=== PATIENT | female | born 1970 | race African-American/Black ===

== ENCOUNTER 2017-03-04 12:42 | Emergency (ER) | payer SELFPAY ==
[~2017-03-04] VITALS: Ht 167.6 cm; Wt 117.9 kg
[2017-03-04 13:20] VITALS: BP 140/89
[2017-03-04] MEDS ORDERED: ALBUTEROL SULFATE 2.5 MG/3 ML NEBU. NEB ONE (14:30)
--- NOTE | 2017-03-04 14:33 | PHYS DOC ---
Past Medical History Past Medical History: No Pertinent History Past Surgical History: No Surgical History Alcohol Use: None Drug Use: None Adult General Chief Complaint Chief Complaint: Congestion HPI HPI Patient is a 46 year old female who presents with one week history of burping she's also had increasing coughing some body aches. Denies fever chills headache stiff neck vomiting or diarrhea. She apparently sat an extensive workup and is seen to ENTs for changes in her voice and swallowing issues. she' s had a nasopharyngeal scope done twice. Has seen to specialist with conflicting recommendations regarding thyroid enlargement. Review of Systems Review of Systems Constitutional: Denies fever or chills [] Eyes: Denies change in visual acuity, redness, or eye pain [] HENT: Denies nasal congestion or sore throat [] Respiratory: Denies cough or shortness of breath [] Cardiovascular: No additional information not addressed in HPI [] GI: Denies abdominal pain, nausea, vomiting, bloody stools or diarrhea [] : Denies dysuria or hematuria [] Musculoskeletal: Denies back pain or joint pain [] Integument: Denies rash or skin lesions [] Neurologic: Denies headache, focal weakness or sensory changes [] Endocrine: Denies polyuria or polydipsia [] All other systems were reviewed and found to be within normal limits, except as documented in this note. Current Medications Current Medications Current Medications Medications (Trade) Dose Ordered Sig/Darling Start Time Stop Time Status Last Admin Dose Admin Albuterol Sulfate (Ventolin Neb Soln) 2.5 mg 1X ONCE 03/04/17 14:30 03/04/17 14:31 DC 03/04/17 14:40 2.5 MG Allergies Allergies Allergies Coded Allergies Type Severity Reaction Last Updated Verified No Known Drug Allergies 03/04/17 No Physical Exam Physical Exam Constitutional: Well developed, well nourished, no acute distress, non-toxic appearance. [] HENT: Normocephalic, atraumatic, bilateral external ears normal, oropharynx moist, no oral exudates, nose normal. [] Eyes: PERRLA, EOMI, conjunctiva normal, no discharge. [] Neck: Normal range of motion, no tenderness, supple, no stridor. [] Cardiovascular:Heart rate regular rhythm, no murmur [] Lungs & Thorax: Bilateral breath sounds clear to auscultation [] Abdomen: Bowel sounds normal, soft, no tenderness, no masses, no pulsatile masses. [] Skin: Warm, dry, no erythema, no rash. [] Back: No tenderness, no CVA tenderness. [] Extremities: No tenderness, no cyanosis, no clubbing, ROM intact, no edema. [] Neurologic: Alert and oriented X 3, normal motor function, normal sensory function, no focal deficits noted. [] Psychologic: Affect normal, judgement normal, mood normal. [] Current Patient Data Vital Signs Vital Signs Date Time Temp Pulse Resp B/P (MAP) Pulse Ox O2 Delivery O2 Flow Rate FiO2 03/04/17 14:40 98 Room Air 03/04/17 13:20 98.7 96 20 140/89 (106) 98.7 Lab Values Laboratory Tests Test 03/04/17 13:30 POC Urine HCG, Qualitative Hcg negative (Negative) EKG EKG [] Radiology/Procedures Radiology/Procedures Chest x-ray[] atelectasis bilateral no infiltrate per radiology report Course & Med Decision Making Course & Med Decision Making Pertinent Labs and Imaging studies reviewed. (See chart for details) [] Dragon Disclaimer Dragon Disclaimer This electronic medical record was generated, in whole or in part, using a voice recognition dictation system. Departure Departure Impression: Primary Impression: Cough Disposition: 01 HOME, SELF-CARE Condition: STABLE Referrals: NO PCP (PCP) Scripts Ondansetron (ZOFRAN ODT) 4 Mg Tab.rapdis 4 MG PO TID Y for NAUSEA/VOMITING, #10 TAB Prov: CARLO LUNA MD 03/04/17 Guaifenesin/Dextromethorphan (Robitussin Cough-Chest Dm Liq) 237 Ml Liquid 10 ML PO QID Y for COUGH, #120 LIQUID Prov: CARLO LUNA MD 03/04/17 Albuterol Sulfate (PROVENTIL HFA INHALER) 6.7 Gm Hfa.aer.ad 2 PUFF IH PRN Q4HRS Y for FOR ASTHMA, #1 INHALER 0 Refills Prov: CARLO LUNA MD 03/04/17 CARLO LUNA MD Mar 04, 2017 14:33
--- NOTE | 2017-03-04 14:46 | RAD ---
Indication: Chest pain, belching. Nausea and cough. Symptoms for a few days. Technique: Upright portable chest radiograph was obtained. Comparison is not available. Findings: Linear atelectasis or less likely infiltrate in the lower lung wilcox bilaterally is noted. Calcified granuloma is noted in the left lung base. The heart is not enlarged and there is no heart failure. Bony structures are intact. Anterior cervical fusion is noted. Leads overlie the patient. Impression: Linear bands of atelectasis or less likely infiltrate bilaterally in the lower lobes.
[2017-03-04] MEDS ORDERED: GUAI237L83 PO (14:57)
[2017-03-04] MEDS ORDERED: PROVENTIL HFA6.7 GM IH (14:57)
[2017-03-04] MEDS ORDERED: ONDA4TAB10 PO (14:57)
== END 2017-03-04 15:09 | disposition home or self-care (01) ==
LOC: ER 12:42
DX: R05 Cough (principal); M79.1 Myalgia
CPT/HCPCS: 71010; 81025; 94250; 94640; 99284; J7613

== ENCOUNTER → 2021-04-12 | Outpatient (CLI) | payer OTHER ==
[2021-03-14 15:00] VITALS: BP 122/63
[~2021-04-12] MED LIST: ALBU2.5V8 IH; BUDE0.5A NEB; DOXY100C3 PO; GUAI237L83 PO; IPRA3AMP29 NEB; MELO15TA23 PO; METH-562 PO; MONT10TA49 PO; NEBU-129 MC; ONDA4TAB10 PO; PRED20TA PO; PROVENTIL HFA6.7 GM IH; SPIR1TAB3 PO; TRAM50TA PO
--- NOTE | 2021-04-13 10:45 | RAD ---
INDICATION: 51 years of age asymptomatic female patient presents for screening mammography. Baseline TECHNIQUE: Standard MLO and cc views obtained. Study interpreted with the aid of computer-aided dete ction. COMPARISON: None .. BREAST COMPOSITION: Category B: There are scattered fibroglandular densities. FINDINGS: No suspicious mass or clustered microcalcification. No architectural distortion. IMPRESSION: No mammographic evidence of malignancy. RECOMMENDATION: Annual screening mammography is recommended, unless clinically indicated sooner based on symptoms or change in physical exam. BIRADS 1: NEGATIVE This study was interpreted with the benefit of Computerized Aided Detection (CAD). Recommend routine screening in one year. Patient information is entered into the reminder system with a target due date for the next screening mammogram. Mammography is the most sensitive method for finding small breast cancers, but it does not detect the m all and is not a substitute for careful clinical examination. A negative mammogram does not negate a clinically suspicious finding and should not result in delay in biopsying a clinically suspicious a bnormality. "Our facility is accredited by the [employer] Mammography Program." Electronically signed by: Jamar Stone MD (04/13/2021 10:42 AM) [id number]
== END ==
LOC: MAMMO 13:23
PROVIDERS: ATTEND Family Medicine
DX: Z12.31 Encounter for screening mammogram for malignant neoplasm of breast (principal)
CPT/HCPCS: 77067

== ENCOUNTER 2021-09-11 12:26 | Inpatient (IN) | payer OTHER ==
[~2021-09-11] VITALS: Ht 167.6 cm; Wt 156.0 kg
[2021-09-11 13:24] LABS: BASO % 1 % (0-3); EOS # 0.1 x10^3/uL (0.0-0.7); EOS % 1 % (0-3); HEMATOCRIT 34.8 % (36.0-47.0); LYMPH # 1.4 x10^3/uL (1.0-4.8); LYMPH % 26 % (24-48); MEAN CORPUSCULAR HEMOGLOBIN 27 pg (25-35); MEAN CORPUSCULAR HGB CONC 32 g/dL (31-37); MEAN CORPUSCULAR VOLUME 85 fL (79-100); MONO # 0.6 x10^3/uL (0.0-1.1); MONO % 10 % (0-9); NEUT # 3.5 x10^3/uL (1.8-7.7); NEUT % 62 % (31-73); PLATELET COUNT 282 x10^3/uL (140-400); RED BLOOD COUNT 4.11 x10^6/uL (3.50-5.40); RED CELL DISTRIBUTION WIDTH 14.8 % (11.5-14.5); WHITE BLOOD COUNT 5.6 x10^3/uL (4.0-11.0)
[2021-09-11 13:35] LABS: CALCIUM 8.6 mg/dL (8.5-10.1); CREATININE 0.8 mg/dL (0.6-1.0); GFR 90.8; POTASSIUM 4.2 mmol/L (3.5-5.1)
--- NOTE | 2021-09-11 13:44 | RAD ---
Single view of the chest. 09/11/2021 1:12 PM Indication: Edema Comparison: Chest radiograph April 13, 2021 Findings: There is mild left basilar atelectasis or infiltrate. Mild central vascular congestion may be present. No pneumothorax or pleural effusion is identified. Heart size is normal. No acute osseous changes are identified. IMPRESSION:. 1. Mild central vascular congestion 2. Mild bibasilar atelectasis or infiltrate Electronically signed by: Olaf Cast MD (09/11/2021 1:42 PM) [id number]
[2021-09-11] MEDS ORDERED: FUROSEMIDE 40 MG/4 ML VIAL. ONE (14:25)
--- NOTE | 2021-09-11 14:39 | PHYS DOC ---
Past Medical History Past Medical History: No Pertinent History, Asthma Additional Past Medical Histor: "something with my thyroid" Past Surgical History: No Surgical History Additional Past Surgical Histo: spinal sx Smoking Status: Never Smoker Alcohol Use: None Drug Use: None General Adult EDM: Chief Complaint: LOWER EXTREMITY SWELLING HPI: HPI: Patient is a 51 year old female with a history of hypertension who presents to the emergency department today with concerns for bilateral lower extremity edema. Patient states over the past 2 to 3 weeks she has had worsening swelling in her legs and feet. She states that she normally takes spironolactone and hydrochlorothiazide but this has not helped with her swelling. She also endorses some shortness of breath. She endorses both PND and orthopnea. She denies having any chest pain. She denies any history of heart failure. She states she has seen her PCP who has adjusted her diuretics but she continues to have some swelling. Review of Systems: Review of Systems: Constitutional: Denies fever or chills. [] Eyes: Denies change in visual acuity. [] HENT: Denies nasal congestion or sore throat. [] Respiratory: Denies cough or shortness of breath. [] Cardiovascular: Denies chest pain GI: Denies abdominal pain, nausea, vomiting, bloody stools or diarrhea. [] : Denies dysuria. [] Musculoskeletal: Denies back pain or joint pain. [] Integument: Denies rash. [] Neurologic: Denies headache, focal weakness or sensory changes. [] Endocrine: Denies polyuria or polydipsia. [] Lymphatic: Denies swollen glands. [] Psychiatric: Denies depression or anxiety. [] Heart Score: C/O Chest Pain: No Current Medications: Current Medications Medications (Trade) Dose Ordered Sig/Darling Start Time Stop Time Status Last Admin Dose Admin Furosemide (Lasix) 40 mg 1X ONCE 09/11/21 14:45 09/11/21 14:46 09/11/21 14:33 40 MG Allergies: Allergies: Allergies Coded Allergies Type Severity Reaction Last Updated Verified No Known Drug Allergies 03/04/17 No Physical Exam: PE: Constitutional: Well developed, well nourished, no acute distress, non-toxic appearance. [] HENT: Normocephalic, atraumatic, bilateral external ears normal, oropharynx moist, no oral exudates, nose normal. [] Eyes: PERRLA, EOMI, conjunctiva normal, no discharge. [] Neck: Normal range of motion, no tenderness, supple, no stridor. [] Cardiovascular:Heart rate regular rhythm, no murmur [] Lungs & Thorax: Mild expiratory wheeze at the bases. Abdomen: Bowel sounds normal, soft, no tenderness, no masses, no pulsatile masses. [] Skin: Warm, dry, no erythema, no rash. [] Back: No tenderness, no CVA tenderness. [] Extremities: No tenderness, no cyanosis, no clubbing, ROM intact. 2+ bilateral lower extremity edema. Neurologic: Alert and oriented X 3, normal motor function, normal sensory function, no focal deficits noted. [] Psychologic: Affect normal, judgement normal, mood normal. [] Current Patient Data: Labs: Laboratory Tests Test 09/11/21 13:00 White Blood Count 5.6 x10^3/uL (4.0-11.0) Red Blood Count 4.11 x10^6/uL (3.50-5.40) Hemoglobin 11.0 g/dL (12.0-15.5) L Hematocrit 34.8 % (36.0-47.0) L Mean Corpuscular Volume 85 fL (79-100) Mean Corpuscular Hemoglobin 27 pg (25-35) Mean Corpuscular Hemoglobin Concent 32 g/dL (31-37) Red Cell Distribution Width 14.8 % (11.5-14.5) H Platelet Count 282 x10^3/uL (140-400) Neutrophils (%) (Auto) 62 % (31-73) Lymphocytes (%) (Auto) 26 % (24-48) Monocytes (%) (Auto) 10 % (0-9) H Eosinophils (%) (Auto) 1 % (0-3) Basophils (%) (Auto) 1 % (0-3) Neutrophils # (Auto) 3.5 x10^3/uL (1.8-7.7) Lymphocytes # (Auto) 1.4 x10^3/uL (1.0-4.8) Monocytes # (Auto) 0.6 x10^3/uL (0.0-1.1) Eosinophils # (Auto) 0.1 x10^3/uL (0.0-0.7) Basophils # (Auto) 0.0 x10^3/uL (0.0-0.2) Sodium Level 141 mmol/L (136-145) Potassium Level 4.2 mmol/L (3.5-5.1) Chloride Level 104 mmol/L (98-107) Carbon Dioxide Level 30 mmol/L (21-32) Anion Gap 7 (6-14) Blood Urea Nitrogen 14 mg/dL (7-20) Creatinine 0.8 mg/dL (0.6-1.0) Estimated GFR (Cockcroft-Gault) 90.8 Glucose Level 139 mg/dL (70-99) H Calcium Level 8.6 mg/dL (8.5-10.1) Troponin I High Sensitivity 6 ng/L (4-50) JZ-[id number]-G-Type Natriuretic Peptide 23 pg/mL (0-124) Laboratory Tests 09/11/21 13:00 Laboratory Tests 09/11/21 13:00 Vital Signs: Vital Signs Date Time Temp Pulse Resp B/P (MAP) Pulse Ox O2 Delivery O2 Flow Rate FiO2 09/11/21 14:23 77 20 120/57 (78) 98 Nasal Cannula 2.0 09/11/21 12:45 97.8 97.8 EKG: EKG: EKG shows a normal sinus rhythm with a rate of 71. There is a leftward axis. No evidence of ischemia or infarction. EKG was interpreted by myself. Radiology/Procedures: Radiology/Procedures: PROCEDURE: CHEST PA & LATERAL Single view of the chest. 09/11/2021 1:12 PM Indication: Edema Comparison: Chest radiograph April 13, 2021 Findings: There is mild left basilar atelectasis or infiltrate. Mild central vascular congestion may be present. No pneumothorax or pleural effusion is identified. Heart size is normal. No acute osseous changes are identified. IMPRESSION:. 1. Mild central vascular congestion 2. Mild bibasilar atelectasis or infiltrate Impression: New onset CHF Bilateral lower extremity edema Course & Med Decision Making: Course & Med Decision Making Patient was evaluated at the bedside with a physical exam. History and physical consistent with CHF. BNP is 28. This is likely diastolic heart failure. Her chest x-ray shows evidence of pulmonary vascular congestion. I have given the patient 40mg of Lasix IV here in the emergency department. I have discussed her with Dr. Chang and we will admit her to the hospitalist service for an echo, diuresis and further management per the hospitalist team. Diana Disclaimer: Diana Disclaimer: This electronic medical record was generated, in whole or in part, using a voice recognition dictation system. Departure Departure Impression: Primary Impression: New onset of congestive heart failure Additional Impression: Bilateral lower extremity edema Disposition: HOME / SELF CARE / HOMELESS Condition: STABLE Referrals: BRYCE HUTSON MD (PCP) ALTAGRACIA SHAH MD September 11, 2021 14:39
[2021-09-11] MEDS ORDERED: FUROSEMIDE 40 MG/4 ML VIAL. IVP ONE (14:45)
--- NOTE | 2021-09-11 15:12 | EKG ---
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
[2021-09-11 16:18] VITALS: BP 113/57
--- NOTE | 2021-09-11 17:40 | PDOC1 ---
History and Physical Date of Service: DOS: DATE: 09/11/21 TIME: 17:31 Chief Complaint: Chief Complain: Lower extremity edema History of Present Illness: HPI: 51 year old female with a history of hypertension who presents to the emergency department today with concerns for bilateral lower extremity edema. Patient states over the past 2 to 3 weeks she has had worsening swelling in her legs and feet. She states that she normally takes spironolactone and hydrochlorothiazide but this has not helped with her swelling. She also endorses some shortness of breath. She endorses both PND and orthopnea. She denies having any chest pain. She denies any history of heart failure. She states she has seen her PCP who has adjusted her diuretics but she continues to have some swelling. Past Medical/Surgical History: PMH/PSH: Past Medical History: Asthma Past Surgical History: spinal sx Allergies: Allergies: Coded Allergies: No Known Drug Allergies (Unverified , 03/04/17) Family History: Family History: Reviewed with no relative findings in the chart Social History: Social History: Smoking Status: Never Smoker Alcohol Use: None Drug Use: None Current Medications: Current Medications Current Medications Furosemide (Lasix) 40 mg STK-MED ONCE .ROUTE ; Start 09/11/21 at 14:25; Stop at 14:26; Status DC Furosemide (Lasix) 40 mg 1X ONCE IVP Last administered on 09/11/21at 14:33; Start 09/11/21 at 14:45; Stop 09/11/21 at 14:46; Status DC Active Scripts Active Doxycycline Hyclate 100 Mg Capsule 1 Cap PO BID 5 Days Innospire Go Nebulizer (Nebulizer) 1 Each Each Each Up to 6 times daily for budesonide and as needed duo nebs. Please dispense tubing and accessories Proair Hfa (Albuterol Sulfate) 8.5 Gm Hfa.aer.ad 2 Puff IH PRN Q4-6HRS PRN 21 Days Prednisone 20 Mg Tablet 1 Tab PO DAILY 5 Days Duoneb 0.5-3(2.5) Mg/3 Ml (Albuterol/Ipratropium) 3 Ml Ampul.neb 3 Ml NEB PRN Q4HRS PRN 30 Days Budesonide 0.5 Mg/2 Ml Ampul.neb 0.5 Mg NEB RTBID 30 Days Montelukast Sodium Tablet (Montelukast Sodium) 10 Mg Tablet 10 Mg PO QHS 30 Days Robitussin Cough-Chest Dm Liq (Guaifenesin/Dextromethorphan) 237 Ml Liquid 10 Ml PO QID PRN Reported Spironolactone-Hctz 25-25 Tab (Spironolact/Hydrochlorothiazid) 1 Each Tablet 1 Each PO DAILY ROS: Review of Systems Review of System REVIEW OF SYSTEMS: GENERAL: Denies weakness SKIN: No bruising, hair changes or rashes. EYES: No blurred, double or loss of vision. NOSE AND THROAT: No history of nosebleeds, hoarseness or sore throat. HEART: No history of palpitations, chest pain or shortness of breath on exertion. LUNGS: Denies cough, hemoptysis, wheezing or shortness of breath. GASTROINTESTINAL: Denies changes in appetite, nausea, vomiting, diarrhea or constipation. GENITOURINARY: No history of frequency, urgency, hesitancy or nocturia. NEUROLOGIC: Denies history of numbness, tingling, or tremor. PSYCHIATRIC: No history of panic, anxiety or depression. ENDOCRINE: No history of heat or cold intolerance, polyuria or polydipsia. EXTREMITIES: Positive for lower extremity edema Physical Exam: Vital Signs: Vital Signs Date Time Temp Pulse Resp B/P (MAP) Pulse Ox O2 Delivery O2 Flow Rate FiO2 09/11/21 16:33 Nasal Cannula 2.0 09/11/21 16:18 98.1 90 19 113/57 (75) 98 98.1 Physcial Exam: General: Well developed, well nourished, no acute distress, well appearing HEENT: Pupils equally round and reactive to light, EOMI, no discharge, normal conjunctiva Neck: Supple, no nuchal rigidity, no JVD, trachea midline, no tenderness Cardiac: RRR, no murmurs, no gallops, no rubs Chest/Lungs: Bilateral wheeze at the bases, no rhonchi, no crackles Abdomen: soft, non-distended, no guarding, no peritoneal signs, non-tender Back: No tenderness Extremities: +2 bilateral pulmonary edema, pulses intact, non-tender,capillary refill <3 sec bilateral upper and lower extremities, Neuro: Alert and oriented x 4, no focal deficits, normal speech Labs: Labs: Laboratory Tests Test 09/11/21 13:00 White Blood Count 5.6 x10^3/uL (4.0-11.0) Red Blood Count 4.11 x10^6/uL (3.50-5.40) Hemoglobin 11.0 g/dL (12.0-15.5) Hematocrit 34.8 % (36.0-47.0) Mean Corpuscular Volume 85 fL (79-100) Mean Corpuscular Hemoglobin 27 pg (25-35) Mean Corpuscular Hemoglobin Concent 32 g/dL (31-37) Red Cell Distribution Width 14.8 % (11.5-14.5) Platelet Count 282 x10^3/uL (140-400) Neutrophils (%) (Auto) 62 % (31-73) Lymphocytes (%) (Auto) 26 % (24-48) Monocytes (%) (Auto) 10 % (0-9) Eosinophils (%) (Auto) 1 % (0-3) Basophils (%) (Auto) 1 % (0-3) Neutrophils # (Auto) 3.5 x10^3/uL (1.8-7.7) Lymphocytes # (Auto) 1.4 x10^3/uL (1.0-4.8) Monocytes # (Auto) 0.6 x10^3/uL (0.0-1.1) Eosinophils # (Auto) 0.1 x10^3/uL (0.0-0.7) Basophils # (Auto) 0.0 x10^3/uL (0.0-0.2) Sodium Level 141 mmol/L (136-145) Potassium Level 4.2 mmol/L (3.5-5.1) Chloride Level 104 mmol/L (98-107) Carbon Dioxide Level 30 mmol/L (21-32) Anion Gap 7 (6-14) Blood Urea Nitrogen 14 mg/dL (7-20) Creatinine 0.8 mg/dL (0.6-1.0) Estimated GFR (Cockcroft-Gault) 90.8 Glucose Level 139 mg/dL (70-99) Calcium Level 8.6 mg/dL (8.5-10.1) Troponin I High Sensitivity 6 ng/L (4-50) DG-Gxm-U-Type Natriuretic Peptide 23 pg/mL (0-124) Laboratory Tests Test 09/11/21 13:00 White Blood Count 5.6 x10^3/uL (4.0-11.0) Red Blood Count 4.11 x10^6/uL (3.50-5.40) Hemoglobin 11.0 g/dL (12.0-15.5) Hematocrit 34.8 % (36.0-47.0) Mean Corpuscular Volume 85 fL (79-100) Mean Corpuscular Hemoglobin 27 pg (25-35) Mean Corpuscular Hemoglobin Concent 32 g/dL (31-37) Red Cell Distribution Width 14.8 % (11.5-14.5) Platelet Count 282 x10^3/uL (140-400) Neutrophils (%) (Auto) 62 % (31-73) Lymphocytes (%) (Auto) 26 % (24-48) Monocytes (%) (Auto) 10 % (0-9) Eosinophils (%) (Auto) 1 % (0-3) Basophils (%) (Auto) 1 % (0-3) Neutrophils # (Auto) 3.5 x10^3/uL (1.8-7.7) Lymphocytes # (Auto) 1.4 x10^3/uL (1.0-4.8) Monocytes # (Auto) 0.6 x10^3/uL (0.0-1.1) Eosinophils # (Auto) 0.1 x10^3/uL (0.0-0.7) Basophils # (Auto) 0.0 x10^3/uL (0.0-0.2) Sodium Level 141 mmol/L (136-145) Potassium Level 4.2 mmol/L (3.5-5.1) Chloride Level 104 mmol/L (98-107) Carbon Dioxide Level 30 mmol/L (21-32) Anion Gap 7 (6-14) Blood Urea Nitrogen 14 mg/dL (7-20) Creatinine 0.8 mg/dL (0.6-1.0) Estimated GFR (Cockcroft-Gault) 90.8 Glucose Level 139 mg/dL (70-99) Calcium Level 8.6 mg/dL (8.5-10.1) Troponin I High Sensitivity 6 ng/L (4-50) NV-Enq-L-Type Natriuretic Peptide 23 pg/mL (0-124) Images: Images PROCEDURE: CHEST PA & LATERAL Single view of the chest. 09/11/2021 1:12 PM Indication: Edema Comparison: Chest radiograph April 13, 2021 Findings: There is mild left basilar atelectasis or infiltrate. Mild central vas cular congestion may be present. No pneumothorax or pleural effusion is identified. Heart size is normal. No acute osseous changes are identified. IMPRESSION:. 1. Mild central vascular congestion 2. Mild bibasilar atelectasis or infiltrate Assessment/Plan Assessment/Plan Acute hypoxic respiratory failure Pulmonary edema Lower extremity edema, concern for CHF exacerbation History of asthma History of bronchitis Admit to hospitalist for further management Pending TE Cardiology consult Strict I's/O Monitor urine output Lasix IV daily and as needed O2 supplementation to maintain O2 saturations greater than 92% DuoNebs as needed every 6 hours Lovenox for DVT prophylaxis Cardiac diet CODE STATUS full Discussed with RN and SW Disposition inpatient management as above DPOA: Justifications for Admission Other Justification NORBERTO MCLAIN MD September 11, 2021 17:40
[2021-09-11] MEDS ORDERED: DEXTROSE 50% 25 GM / 50ML DISP.SYRIN. IV PRN (17:45)
[2021-09-11] MEDS ORDERED: ZOLPIDEM 5 MG TABLET. PO PRN (17:45)
[2021-09-11] MEDS ORDERED: ONDANSETRON PF 4 MG/2 ML VIAL. IVP PRN (17:45)
[2021-09-11] MEDS ORDERED: diphenhydrAMINE 50 MG/ML VIAL IVP PRN (17:45)
[2021-09-11] MEDS ORDERED: PROCHLORPERAZINE 10 MG/2 ML VIAL. IV PRN (17:45)
[2021-09-11] MEDS ORDERED: IPRATRPIUM/ALBUTEROL 0.5/2.5MG 3 ML NEBU. NEB PRN (17:45)
[2021-09-11] MEDS ORDERED: diphenhydrAMINE HCL 25 MG CAPSULE PO PRN ×2 (17:45)
[2021-09-11] MEDS ORDERED: DOCUSATE SODIUM 100 MG CAPSULE. PO PRN (17:45)
[2021-09-11] MEDS ORDERED: SENNOSIDES 8.6 MG TABLET PO PRN (17:45)
[2021-09-11] MEDS ORDERED: ALBUTEROL SULFATE 2.5 MG/3 ML NEBU. NEB PRN (18:00)
[2021-09-11 19:29] VITALS: BP 118/62
[2021-09-11] MEDS: ACETAMINOPHEN 325 MG TABLET. PO PRN (20:26)
[2021-09-11] MEDS: LORazepam 0.5 MG TABLET PO PRN (20:27)
[2021-09-11] MEDS: MONTELUKAST SODIUM 10 MG TABLET. PO SCH (20:27)
[2021-09-11] MEDS: BUDESONIDE 0.5 MG/2 ML NEBU. NEB SCH (20:33)
[2021-09-11] MEDS: IPRATRPIUM/ALBUTEROL 0.5/2.5MG 3 ML NEBU. NEB SCH (20:33)
[2021-09-11 22:56] VITALS: BP 104/65
[2021-09-12 03:23] VITALS: BP 102/55
[2021-09-12] MEDS: ACETAMINOPHEN 325 MG TABLET. PO PRN ×3 (03:28→21:53)
[2021-09-12 06:59] LABS: CALCIUM 8.7 mg/dL (8.5-10.1); CREATININE 0.8 mg/dL (0.6-1.0); GFR 90.8; MAGNESIUM 2.1 mg/dL (1.8-2.4); PHOSPHORUS 4.5 mg/dL (2.6-4.7); POTASSIUM 3.4 mmol/L (3.5-5.1)
[2021-09-12 07:00] VITALS: BP 120/58
[2021-09-12 07:10] LABS: BASO % 1 % (0-3); EOS # 0.1 x10^3/uL (0.0-0.7); EOS % 1 % (0-3); HEMATOCRIT 32.8 % (36.0-47.0); HEMOGLOBIN 10.6 g/dL (12.0-15.5); LYMPH # 1.6 x10^3/uL (1.0-4.8); LYMPH % 31 % (24-48); MEAN CORPUSCULAR HEMOGLOBIN 27 pg (25-35); MEAN CORPUSCULAR HGB CONC 32 g/dL (31-37); MEAN CORPUSCULAR VOLUME 85 fL (79-100); MONO # 0.6 x10^3/uL (0.0-1.1); MONO % 13 % (0-9); NEUT # 2.8 x10^3/uL (1.8-7.7); NEUT % 55 % (31-73); PLATELET COUNT 258 x10^3/uL (140-400); RED BLOOD COUNT 3.87 x10^6/uL (3.50-5.40); RED CELL DISTRIBUTION WIDTH 15.2 % (11.5-14.5); WHITE BLOOD COUNT 5.2 x10^3/uL (4.0-11.0)
[2021-09-12] MEDS ORDERED: PERFLUTREN PROTEIN-A MICROSPHR 0.22 MG/ML 3 ML VIAL. IVP ONE ×2 (07:15→07:51)
[2021-09-12] MEDS: IPRATRPIUM/ALBUTEROL 0.5/2.5MG 3 ML NEBU. NEB SCH ×4 (07:55→20:16)
[2021-09-12] MEDS: BUDESONIDE 0.5 MG/2 ML NEBU. NEB SCH ×2 (07:55→20:16)
[2021-09-12] MEDS: predniSONE 20 MG TABLET PO SCH (08:38)
--- NOTE | 2021-09-12 08:58 | PDOC ---
[employer] PROGRESS NOTE Date of Service DOS: DATE: 09/12/21 TIME: 08:36 Chief Complaint Chief Complaint Dyspnea Fall at home Bilateral knee and ankle pain Pulmonary edema Lower extremity edema -very low NT proBNP difficulty use diagnostic tests in morbidly obese patient [Cutoff for super morbid obesity may be 20.4 in some studies (SAADIA PIÑA)] History of asthma History of bronchitis History of Present Illness History of Present Illness Ms Billingsley is a 51-year-old female with PMHx asthma, morbid obesity came to the ED after a fall onto her backside at home and inability to stand. For the past 2 to 3 weeks she has had worsening swelling in her legs and feet. She states that she normally takes spironolactone and hydrochlorothiazide but this has not helped with her swelling. She also endorses some shortness of breath. She endorses both PND and orthopnea. She denies having any chest pain. She denies any history of heart failure. She states she has seen her PCP who has adjusted her diuretics but she continues to have some swelling. 09/12: She notes after IV Lasix she had some improvement but swelling came right back. Has significant pain to palpation of her left foot. Able to bear weight but intermittently has pain in bilateral knees cannot stand for more than 10 seconds unaided. She has been using a Rollator walker at home. After Lasix pain is down to 3.0. She still has dyspnea on exertion and orthopnea. NT proBNP was only 23. We will trial aggressive IV Lasix consult cardiology and pulmonology. Check uric acid venous Dopplers of lower extremities Vitals/I&O Vitals/I&O: Vital Signs Date Time Temp Pulse Resp B/P (MAP) Pulse Ox O2 Delivery O2 Flow Rate FiO2 09/12/21 07:56 95 Nasal Cannula 2.0 09/12/21 07:00 97.8 84 20 120/58 (78) 97.8 I & O 09/11/21 09/11/21 09/12/21 15:00 23:00 07:00 Intake Total 700 ml Output Total 800 ml 150 ml Balance -800 ml 550 ml Physical Exam General: Alert, Oriented X3, Cooperative Lungs: Clear Extremities: Other (2+ pitting edema) Labs Labs: Laboratory Tests Test 09/11/21 13:00 09/12/21 05:00 5/24/22 05:20 White Blood Count 5.6 x10^3/uL (4.0-11.0) 5.2 x10^3/uL (4.0-11.0) Red Blood Count 4.11 x10^6/uL (3.50-5.40) 3.87 x10^6/uL (3.50-5.40) Hemoglobin 11.0 g/dL (12.0-15.5) 10.6 g/dL (12.0-15.5) Hematocrit 34.8 % (36.0-47.0) 32.8 % (36.0-47.0) Mean Corpuscular Volume 85 fL (79-100) 85 fL (79-100) Mean Corpuscular Hemoglobin 27 pg (25-35) 27 pg (25-35) Mean Corpuscular Hemoglobin Concent 32 g/dL (31-37) 32 g/dL (31-37) Red Cell Distribution Width 14.8 % (11.5-14.5) 15.2 % (11.5-14.5) Platelet Count 282 x10^3/uL (140-400) 258 x10^3/uL (140-400) Neutrophils (%) (Auto) 62 % (31-73) 55 % (31-73) Lymphocytes (%) (Auto) 26 % (24-48) 31 % (24-48) Monocytes (%) (Auto) 10 % (0-9) 13 % (0-9) Eosinophils (%) (Auto) 1 % (0-3) 1 % (0-3) Basophils (%) (Auto) 1 % (0-3) 1 % (0-3) Neutrophils # (Auto) 3.5 x10^3/uL (1.8-7.7) 2.8 x10^3/uL (1.8-7.7) Lymphocytes # (Auto) 1.4 x10^3/uL (1.0-4.8) 1.6 x10^3/uL (1.0-4.8) Monocytes # (Auto) 0.6 x10^3/uL (0.0-1.1) 0.6 x10^3/uL (0.0-1.1) Eosinophils # (Auto) 0.1 x10^3/uL (0.0-0.7) 0.1 x10^3/uL (0.0-0.7) Basophils # (Auto) 0.0 x10^3/uL (0.0-0.2) 0.0 x10^3/uL (0.0-0.2) Sodium Level 141 mmol/L (136-145) 142 mmol/L (136-145) Potassium Level 4.2 mmol/L (3.5-5.1) 3.4 mmol/L (3.5-5.1) Chloride Level 104 mmol/L (98-107) 103 mmol/L (98-107) Carbon Dioxide Level 30 mmol/L (21-32) 30 mmol/L (21-32) Anion Gap 7 (6-14) 9 (6-14) Blood Urea Nitrogen 14 mg/dL (7-20) 12 mg/dL (7-20) Creatinine 0.8 mg/dL (0.6-1.0) 0.8 mg/dL (0.6-1.0) Estimated GFR (Cockcroft-Gault) 90.8 90.8 Glucose Level 139 mg/dL (70-99) 98 mg/dL (70-99) Calcium Level 8.6 mg/dL (8.5-10.1) 8.7 mg/dL (8.5-10.1) Troponin I High Sensitivity 6 ng/L (4-50) DF-Ijw-V-Type Natriuretic Peptide 23 pg/mL (0-124) Phosphorus Level 4.5 mg/dL (2.6-4.7) Magnesium Level 2.1 mg/dL (1.8-2.4) Assessment and Plan Assessmemt and Plan Problems Medical Problems: (1) Bilateral lower extremity edema Status: Acute (2) New onset of congestive heart failure Status: Acute Comment Review of Relevant I have reviewed the following items mehdi (where applicable) has been applied. Medications: Current Medications Medications (Trade) Dose Ordered Sig/Darling Route PRN Reason Start Time Stop Time Status Last Admin Dose Admin Furosemide (Lasix) 40 mg 1X ONCE IVP 09/11/21 14:45 09/11/21 14:46 DC 09/11/21 14:33 Budesonide (Pulmicort) 0.5 mg RTBID NEB 09/11/21 20:00 09/12/21 07:55 Montelukast Sodium (Singulair) 10 mg QHS PO 09/11/21 21:00 09/11/21 20:27 Albuterol/ Ipratropium (Duoneb) 3 ml RTQID NEB 09/11/21 20:00 09/12/21 07:55 Acetaminophen (Tylenol) 650 mg PRN Q4HRS PRN PO TEMP OVER 100.4F OR MILD PAIN 09/11/21 17:45 09/12/21 03:28 Lorazepam (Ativan) 0.5 mg PRN Q6HRS PRN PO ANXIETY / AGITATION 09/11/21 17:45 09/11/21 20:27 Enoxaparin Sodium (Lovenox 60mg Syringe) 60 mg Q12HR SQ 09/11/21 21:00 09/11/21 20:27 Diphenhydramine HCl (Benadryl) 25 mg PRN QHS PRN PO INSOMNIA, 1st CHOICE 09/11/21 17:45 09/11/21 20:27 Justifications for Admission Other Justification Concern for CHF exacerbation NNEKA RANDOLPH MD September 12, 2021 08:58
--- NOTE | 2021-09-12 09:27 | RAD ---
EXAMINATION: US BILATERAL LOWEREXTREMITY VENOUS DOPPLER INDICATION: Reason: Pain, swelling, concern for DVT / Spl. Instructions: / History: COMPARISONS: None TECHNIQUE: Grayscale, color and spectral Doppler evaluation of the bilateral lower extremity deep brian ous system(s) was performed. FINDINGS: Evaluation bilateral lower extremities is somewhat limited secondary to patient's body habi tus. bilateral common femoral, femoral and popliteal veins are normally compressible and demonstrate leticia lly directed and appropriately phasic flow with augmentation. Normal flow is present within the saphenofemoral junctions and deep femoral veins in the proximal thi ghs and the posterior tibial and peroneal veins in the proximal calves. IMPRESSION: No visualized evidence of deep venous thrombosis in either lower extremity. Electronically signed by: Thierry Tomas DO (09/12/2021 9:24 AM) [id number]
[2021-09-12] MEDS ORDERED: POTASSIUM CHLORIDE 20 MEQ TABLET.ER. PO ONE (10:00)
[2021-09-12 10:06] VITALS: BP 109/58
[2021-09-12] MEDS: BENZONATATE 100 MG CAPSULE. PO SCH ×3 (10:06→21:00)
[2021-09-12] MEDS: SPIRONOLACTONE 25 MG TABLET PO SCH (10:08)
[2021-09-12] MEDS: FUROSEMIDE 40 MG/4 ML VIAL. IVP SCH ×2 (10:09→14:55)
--- NOTE | 2021-09-12 10:33 | CONS ---
DATE OF CONSULTATION: 09/12/2021 PULMONARY CONSULTATION ATTENDING PHYSICIAN: Dr. Chang. REASON FOR CONSULTATION: Dyspnea. HISTORY OF PRESENT ILLNESS: The patient is a 51-year-old morbidly obese female with a BMI of 56. She presented to the hospital with 3 weeks complaint of lower extremity edema. She has very mild shortness of breath. She has an occasional cough. The patient said she has a history of asthma, which has been under control and uses an inhaler. She does not remember the name of the inhaler. The patient denies any chest pain. Her was at the bedside. He gave much of the history as well. The patient states that she does use a CPAP. I am not sure whether this BiPAP or Trilogy. The noticed that she does wheeze at nighttime and has some gasping for air. The patient has put on 30 pounds in the last 1 year. The patient has received 1 dose of COVID vaccine. A chest x-ray was reviewed by me. I do not see any definite consolidation or CHF. Consultation requested for further evaluation and management. PAST MEDICAL HISTORY: Asthma. PAST SURGICAL HISTORY: Spinal surgery. ALLERGIES: None. MEDICATIONS: Reviewed as listed in the MRAD including furosemide, spironolactone, oral prednisone, Lovenox for DVT prophylaxis and bronchodilators with Pulmicort and DuoNeb. REVIEW OF SYSTEMS: A 12-point systems obtained. Pertinent positives and negatives discussed in my present illness, otherwise noncontributory. All systems that were negative were reviewed as well. SOCIAL HISTORY: Denies significant tobacco use. FAMILY HISTORY: Noncontributory to lungs. PHYSICAL EXAMINATION: VITAL SIGNS: Reviewed. Pulse ox 96% on 2 liters. NECK: Supple. LUNGS: Clear. No wheezing. CARDIOVASCULAR: Regular rate. ABDOMEN: Soft, obese. EXTREMITIES: With 2+ pitting edema. LABORATORY DATA: Reviewed. White cell count 5.2, hemoglobin 10.6 and platelets are 258. BUN is 12, creatinine 0.8. Bicarb is 30. ProBNP is 23. IMPRESSION: 1. Acute hypoxic respiratory failure secondary to component of right heart failure. Clinically, less likely asthma exacerbation. No obvious CHF seen on the chest x-ray. ProBNP is normal. 2. Abnormal echo with mild pulmonary hypertension with an estimated pulmonary artery pressure of 30 to 35, likely from underlying sleep apnea and obesity/hypoventilation syndrome. 3. The patient with known history of sleep apnea and suspected obesity and hypoventilation syndrome. She does use a BIPAP/ Trilogy. She is not sure what she uses. The notices occasional gasping at nighttime. We may have to review the download data from her machine to make sure it is providing effective positive pressure at night. Patient has gained 30Lbs in past year. RECOMMENDATIONS: 1. Continue with present oxygen to keep saturation 92% and above. 2. Continue with diuretics. 3. Await for the official echo report. 4. Continue prednisone with taper. 5. Continue bronchodilators including DuoNeb and budesonide. 6. We will review the download data from her home PAP machine and may recommend another titration to make sure that she is receiving effective pressure or adjust PAP settings based on download data. 7. Discussed with her and we will follow along with you. d/w Dr Tameka MCGRATH/ALEJANDRINA DR: ALCIDES/lyndsey TID: [id number] [facility] HOSPITALDuane
--- NOTE | 2021-09-12 11:47 | CARD ---
MR#: [id number] Date of Study: 09/12/2021 Ordering Physician: NORBERTO MCLAIN, Referring Physician: NORBERTO MCLAIN, Tech: Eveline Ray [facility] APPROVED REPORT EXAM: Two-dimensional and M-mode echocardiogram with Doppler and color Doppler. Other Information Quality : Technically LimitedHR: 78bpm Rhythm : NSR INDICATION Congestive Heart Failure Echo Enhancing Agent Indication: Endocardial border delineation Agent/Amount Used: Optison 2mL RISK FACTORS Hypertension Obesity 2D DIMENSIONS RVDd3.0 (2.9-3.5cm)Left Atrium(2D)3.3 (1.6-4.0cm) IVSd1.0 (0.7-1.1cm)Aortic Root(2D)2.9 (2.0-3.7cm) LVDd4.5 (3.9-5.9cm)LVOT Diameter2.3 (1.8-2.4cm) PWd1.0 (0.7-1.1cm)LVDs2.0 (2.5-4.0cm) FS (%) 56.8 %SV81.6 ml Aortic Valve AoV Peak Uche.186.5cm/sAoV VTI33.5cm AO Peak GR.13.9mmHgLVOT Peak Uche.113.9cm/s AO Mean GR.6mmHgAVA (VMAX)2.45cm2 Mitral Valve MV E Kxpnpdxx52.1cm/sMV DECEL IHCR146mz MV A Kdavfgue67.2cm/sE/A Ratio1.1 Pulmonary Valve PV Peak Gkyjxphy14.3cm/s Tricuspid Valve TR P. Pfuvghvq842pd/sTR Peak Gr.25mmHg LEFT VENTRICLE The left ventricle is normal size. There is normal left ventricular wall thickness. The left ventricu lar systolic function is normal. LV ejection fraction of 50 to 55% There is normal LV segmental wall motion. The left ventricular diastolic function and filling is normal for age. RIGHT VENTRICLE The right ventricle is normal size. There is normal right ventricular wall thickness. The right ventr icular systolic function is normal. ATRIA The left atrium size is normal. The right atrium size is normal. The interatrial septum is intact wit h no evidence for an atrial septal defect or patent foramen ovale as noted on 2-D or Doppler imaging. AORTIC VALVE The aortic valve is normal in structure and function. Doppler and Color Flow revealed no significant aortic regurgitation. There is no significant aortic valvular stenosis. There is no aortic valvular v egetation. MITRAL VALVE The mitral valve is normal in structure and function. There is no evidence of mitral valve prolapse. There is no mitral valve stenosis. Doppler and Color Flow revealed no mitral valve regurgitation note d. TRICUSPID VALVE The tricuspid valve is normal in structure and function. Doppler and Color Flow revealed mild tricusp id regurgitation. Estimated PAP 30 mmHg. There is no tricuspid valve stenosis. PULMONIC VALVE The pulmonary valve is normal in structure and function. Doppler and Color Flow revealed no pulmonic valvular regurgitation. GREAT VESSELS The aortic root is normal in size. The ascending aorta is normal in size. Due to poor image quality, the IVC could not be assessed. PERICARDIAL EFFUSION There is no evidence of significant pericardial effusion. Critical Notification Critical Value: No <Conclusion> The left ventricle is normal size. The left ventricular systolic function is normal. LV ejection fraction of 50 to 55% There is normal left ventricular wall thickness. Doppler and Color Flow revealed no significant aortic regurgitation. There is no significant aortic valvular stenosis. Doppler and Color Flow revealed no mitral valve regurgitation noted. Doppler and Color Flow revealed mild tricuspid regurgitation. Estimated PAP 30 mmHg. Signed by : Prem Lacy MD Electronically Approved : 09/12/2021 11:47:18
--- NOTE | 2021-09-12 12:13 | PDOC2 ---
LORRAINE GUSTAFSON TAXIC[employer] DRIVER 09/12/21 1213: CARDIAC CONSULT DATE OF CONSULT Date of Consult DATE: 09/12/21 TIME: 11:56 REASON FOR CONSULT Reason for Consult: Concern for pulmonary HTN REFERRING PHYSICIAN Referring Physician: Tameka SOURCE Source: Chart review, Patient HISTORY OF PRESENT ILLNESS HISTORY OF PRESENT ILLNESS This is a pleasant 51 yo female admitted for complains of leg swelling. Reports that this has been incresing to a point that it was hard of her to walk. Reports wt gain of at least 50 pounds since Feb 2021. She has chronic respiratory failure and she has VILLA but no different from her baseline. She has been using supplemental O2 since Feb of last yr and has not needing increasing rate and ust ilizes it at sleep and activity. She does not work and has disability. Denies any chest pain, palpitations. She was told in the past that her insurance does not cover bariatric surgery. Denies any past VTE, CAD, arrhythmias nor CHF. Denies any DM2, HTN, or HLP. No past covid-19 but significnat for chronic bronchitisi and asthma. PAST MEDICAL HISTORY Pulmonary: Asthma, COPD, Other (chronic respiratory failure) CENTRAL NERVOUS SYSTEM: Carpal Tunnel Syndrome GI: GERD Heme/Onc: No pertinent hx Hepatobiliary: No pertinent hx Psych: No pertinent hx Musculoskeletal: Osteoarthritis, Other (morbid obesity) Rheumatologic: No pertinent hx Infectious disease: No pertinent hx ENT: No pertinent hx Renal/: No pertinent hx Endocrine: No pertinent hx Dermatology: No pertinent hx PAST SURGICAL HISTORY Past Surgical History: Other (cervical fusion) FAMILY HISTORY Family History noncontributory to CV SOCIAL HISTORY Smoke: Quit ALCOHOL: none Drugs: None Lives: Alone CURRENT MEDICATIONS CURRENT MEDICATIONS Current Medications Medications (Trade) Dose Ordered Sig/Darling Route PRN Reason Start Time Stop Time Status Last Admin Dose Admin Furosemide (Lasix) 40 mg 1X ONCE IVP 09/11/21 14:45 09/11/21 14:46 DC 09/11/21 14:33 Budesonide (Pulmicort) 0.5 mg RTBID NEB 09/11/21 20:00 09/12/21 07:55 Montelukast Sodium (Singulair) 10 mg QHS PO 09/11/21 21:00 09/11/21 20:27 Prednisone (Prednisone) 20 mg DAILY PO 09/12/21 09:00 09/12/21 08:38 Albuterol/ Ipratropium (Duoneb) 3 ml RTQID NEB 09/11/21 20:00 09/12/21 07:55 Acetaminophen (Tylenol) 650 mg PRN Q4HRS PRN PO TEMP OVER 100.4F OR MILD PAIN 09/11/21 17:45 09/12/21 03:28 Lorazepam (Ativan) 0.5 mg PRN Q6HRS PRN PO ANXIETY / AGITATION 09/11/21 17:45 09/11/21 20:27 Enoxaparin Sodium (Lovenox 60mg Syringe) 60 mg Q12HR SQ 09/11/21 21:00 09/12/21 08:38 Diphenhydramine HCl (Benadryl) 25 mg PRN QHS PRN PO INSOMNIA, 1st CHOICE 09/11/21 17:45 09/11/21 20:27 Benzonatate (Tessalon Perle) 100 mg [id number] PO 09/12/21 09:00 09/12/21 10:06 Furosemide (Lasix) 40 mg [id number] IVP 09/12/21 09:00 09/12/21 10:09 Spironolactone (Aldactone) 25 mg DAILY PO 09/12/21 09:00 09/12/21 10:08 Potassium Chloride (Klor-Con) 40 meq 1X ONCE PO 09/12/21 10:00 09/12/21 10:01 DC 09/12/21 10:07 ALLERGIES ALLERGIES: Coded Allergies: No Known Drug Allergies (Unverified , 03/04/17) ROS Review of System 14 point ROS evlauated with pertinent positives noted per HPI PHYSICAL EXAM General: Alert, Oriented X3, Cooperative, No acute distress HEENT: Atraumatic, Mucous membr. moist/pink Lungs: Other (diminished) Heart: Regular rate (SR), Other (distant heart sounds due to body habitus but no murmur) Abdomen: Soft, No tenderness Extremities: No cyanosis, Other (2-3+ bilateral LE pitting edema) Skin: No breakdown, No significant lesion Neuro: Normal speech, Sensation intact Psych/Mental Status: Mental status NL, Mood NL MUSCULOSKELETAL: Full range of motion without pain VITALS/I&O VITALS/I&O: Vital Signs Date Time Temp Pulse Resp B/P (MAP) Pulse Ox O2 Delivery O2 Flow Rate FiO2 09/12/21 10:39 97.8 87 19 99 Nasal Cannula 2.0 97.8 09/12/21 10:06 109/58 (75) I & O 09/11/21 09/11/21 09/12/21 15:00 23:00 07:00 Intake Total 700 ml Output Total 800 ml 150 ml Balance -800 ml 550 ml LABS Lab: Laboratory Tests Test 09/11/21 13:00 09/12/21 05:00 09/12/21 05:20 White Blood Count 5.6 x10^3/uL (4.0-11.0) 5.2 x10^3/uL (4.0-11.0) Red Blood Count 4.11 x10^6/uL (3.50-5.40) 3.87 x10^6/uL (3.50-5.40) Hemoglobin 11.0 g/dL (12.0-15.5) L 10.6 g/dL (12.0-15.5) L Hematocrit 34.8 % (36.0-47.0) L 32.8 % (36.0-47.0) L Mean Corpuscular Volume 85 fL (79-100) 85 fL (79-100) Mean Corpuscular Hemoglobin 27 pg (25-35) 27 pg (25-35) Mean Corpuscular Hemoglobin Concent 32 g/dL (31-37) 32 g/dL (31-37) Red Cell Distribution Width 14.8 % (11.5-14.5) H 15.2 % (11.5-14.5) H Platelet Count 282 x10^3/uL (140-400) 258 x10^3/uL (140-400) Neutrophils (%) (Auto) 62 % (31-73) 55 % (31-73) Lymphocytes (%) (Auto) 26 % (24-48) 31 % (24-48) Monocytes (%) (Auto) 10 % (0-9) H 13 % (0-9) H Eosinophils (%) (Auto) 1 % (0-3) 1 % (0-3) Basophils (%) (Auto) 1 % (0-3) 1 % (0-3) Neutrophils # (Auto) 3.5 x10^3/uL (1.8-7.7) 2.8 x10^3/uL (1.8-7.7) Lymphocytes # (Auto) 1.4 x10^3/uL (1.0-4.8) 1.6 x10^3/uL (1.0-4.8) Monocytes # (Auto) 0.6 x10^3/uL (0.0-1.1) 0.6 x10^3/uL (0.0-1.1) Eosinophils # (Auto) 0.1 x10^3/uL (0.0-0.7) 0.1 x10^3/uL (0.0-0.7) Basophils # (Auto) 0.0 x10^3/uL (0.0-0.2) 0.0 x10^3/uL (0.0-0.2) Sodium Level 141 mmol/L (136-145) 142 mmol/L (136-145) Potassium Level 4.2 mmol/L (3.5-5.1) 3.4 mmol/L (3.5-5.1) L Chloride Level 104 mmol/L (98-107) 103 mmol/L (98-107) Carbon Dioxide Level 30 mmol/L (21-32) 30 mmol/L (21-32) Anion Gap 7 (6-14) 9 (6-14) Blood Urea Nitrogen 14 mg/dL (7-20) 12 mg/dL (7-20) Creatinine 0.8 mg/dL (0.6-1.0) 0.8 mg/dL (0.6-1.0) Estimated GFR (Cockcroft-Gault) 90.8 90.8 Glucose Level 139 mg/dL (70-99) H 98 mg/dL (70-99) Calcium Level 8.6 mg/dL (8.5-10.1) 8.7 mg/dL (8.5-10.1) Troponin I High Sensitivity 6 ng/L (4-50) YJ-Sic-H-Type Natriuretic Peptide 23 pg/mL (0-124) Uric Acid 5.8 mg/dL (2.6-6.0) Phosphorus Level 4.5 mg/dL (2.6-4.7) Magnesium Level 2.1 mg/dL (1.8-2.4) Laboratory Tests 09/11/21 13:00 09/12/21 05:20 Laboratory Tests 09/11/21 13:00 09/12/21 05:00 ASSESSMENT/PLAN ASSESSMENT/PLAN 1. Leg edema: more from being morbidly obese with secondary venous insufficiency Pro NT BNP is 23. 2. Chronic respiratory failure with asthma/COPD: no acute CHF. chronic O2 since 02/2021 3. Morbid obesity 4. Debility/deconditioning 5. Suspecting ANAHI/OHS Recommendations 1. Her VILLA is no different from her baseline, her functional capacity is limited due her size and chronic respiratory issue. She will benefit from outpt ischemic workup for further risk stratification 2. Obtain TSH, TTE, and FLP 3. Received lasix, replace K. 4. Wilil need bariatric referral and outpt ANAHI workup JACOB GILL MD 09/12/21 4709: CARDIAC CONSULT ASSESSMENT/PLAN ASSESSMENT/PLAN Patient seen and examined. Agree with [employer]'s assessment and plan. Edema prob due to venous insufficiency -ndoubt CHF 2D echo showed normal LV systolic function with PAP 30 mmHg Plan ischemic evaluation as outpatient Thank you for your consultation LORRAINE GUSTAFSON APRN September 12, 2021 12:13 JACOB GILL MD September 12, 2021 18:49
--- NOTE | 2021-09-12 12:18 | NUR ---
SS following for discharge planning. SS reviewed pt chart and discussed with pt RN. Pt is from home with spouse and is currently requiring oxygen at two liters nasal canula. Cardiology and Pulmonology following. Pt on IV Lasix. SS will continue to follow for discharge planning.
[2021-09-12 12:58] LABS: CHOLESTEROL/HDL RATIO 2.8
[2021-09-12 15:00] VITALS: BP 145/66
[2021-09-12 19:35] VITALS: BP 115/64
[2021-09-12] MEDS: MONTELUKAST SODIUM 10 MG TABLET. PO SCH (21:00)
[2021-09-12 22:49] VITALS: BP 104/57
--- NOTE | 2021-09-13 00:01 | NUR ---
pt c/o cramps in her lower abd and bilateral legs. requested muscle relaxor. admin. po ativan and pt relaxed and went to sleep. lcrn
[2021-09-13] MEDS: LORazepam 0.5 MG TABLET PO PRN (00:10)
[2021-09-13 03:11] VITALS: BP 99/53
[2021-09-13 05:11] LABS: BASO % 0 % (0-3); EOS # 0.1 x10^3/uL (0.0-0.7); EOS % 1 % (0-3); HEMATOCRIT 33.9 % (36.0-47.0); HEMOGLOBIN 11.1 g/dL (12.0-15.5); LYMPH # 1.6 x10^3/uL (1.0-4.8); LYMPH % 26 % (24-48); MEAN CORPUSCULAR HEMOGLOBIN 27 pg (25-35); MEAN CORPUSCULAR HGB CONC 33 g/dL (31-37); MEAN CORPUSCULAR VOLUME 84 fL (79-100); MONO # 0.8 x10^3/uL (0.0-1.1); MONO % 14 % (0-9); NEUT # 3.6 x10^3/uL (1.8-7.7); NEUT % 59 % (31-73); PLATELET COUNT 280 x10^3/uL (140-400); RED BLOOD COUNT 4.05 x10^6/uL (3.50-5.40); RED CELL DISTRIBUTION WIDTH 14.6 % (11.5-14.5); WHITE BLOOD COUNT 6.1 x10^3/uL (4.0-11.0)
[2021-09-13 05:26] LABS: CALCIUM 8.8 mg/dL (8.5-10.1); GFR 70.2; POTASSIUM 3.4 mmol/L (3.5-5.1)
--- NOTE | 2021-09-13 06:58 | NUR ---
DID EDUCATION WITH PT ON DIET AND FLUID INTAKE. GAVE HER A CHF BOOKLET WHICH HAS GOOD INFORMATION. PUT CONSULTS IN FOR PT AND NUTRITION. PT WANTS MORE INFO ON FOODS TO EAT AND NOT TO EAT. EXPLAINED LIQUIDS IE ANYTHING THAT IS LIQUID OR MELTS TO LIQUID. PT EAGER AND WILLING TO TRY NEW CHANGES. AT THIS AM PT C/O CRAMPS IN LOWER ABD AND BILATERAL LEGS CRAMPING. ADMIN AN ATIVAN AND SHE WAS ABLE TO RELAX AND REST. LCRN
[2021-09-13 07:00] VITALS: BP 135/58
[2021-09-13] MEDS: BUDESONIDE 0.5 MG/2 ML NEBU. NEB SCH (07:24)
[2021-09-13] MEDS: IPRATRPIUM/ALBUTEROL 0.5/2.5MG 3 ML NEBU. NEB SCH ×2 (07:24→11:22)
[2021-09-13] MEDS ORDERED: POTASSIUM CHLORIDE 20 MEQ TABLET.ER. PO ONE (08:00)
[2021-09-13] MEDS: BENZONATATE 100 MG CAPSULE. PO SCH ×2 (08:07→10:20)
[2021-09-13] MEDS: predniSONE 20 MG TABLET PO SCH (08:08)
[2021-09-13] MEDS: SPIRONOLACTONE 25 MG TABLET PO SCH (08:09)
--- NOTE | 2021-09-13 10:05 | PDOC ---
PULMONARY PROGRESS NOTES DATE: 09/13/21 TIME: 09:57 Subjective Denies shortness of breath. Vitals Vital Signs Date Time Temp Pulse Resp B/P (MAP) Pulse Ox O2 Delivery O2 Flow Rate FiO2 09/13/21 08:00 Nasal Cannula 2.0 09/13/21 07:25 98 09/13/21 07:00 97.6 81 17 135/58 (83) 97.6 General: Alert, No acute distress Lungs: Clear Cardiovascular: S1, S2 Abdomen: Soft Extremities: Other (2+ edema.) Skin: Warm Labs Laboratory Tests Test 09/11/21 13:00 09/12/21 05:00 09/12/21 05:20 09/12/21 05:25 White Blood Count 5.6 x10^3/uL (4.0-11.0) 5.2 x10^3/uL (4.0-11.0) Red Blood Count 4.11 x10^6/uL (3.50-5.40) 3.87 x10^6/uL (3.50-5.40) Hemoglobin 11.0 g/dL (12.0-15.5) 10.6 g/dL (12.0-15.5) Hematocrit 34.8 % (36.0-47.0) 32.8 % (36.0-47.0) Mean Corpuscular Volume 85 fL (79-100) 85 fL (79-100) Mean Corpuscular Hemoglobin 27 pg (25-35) 27 pg (25-35) Mean Corpuscular Hemoglobin Concent 32 g/dL (31-37) 32 g/dL (31-37) Red Cell Distribution Width 14.8 % (11.5-14.5) 15.2 % (11.5-14.5) Platelet Count 282 x10^3/uL (140-400) 258 x10^3/uL (140-400) Neutrophils (%) (Auto) 62 % (31-73) 55 % (31-73) Lymphocytes (%) (Auto) 26 % (24-48) 31 % (24-48) Monocytes (%) (Auto) 10 % (0-9) 13 % (0-9) Eosinophils (%) (Auto) 1 % (0-3) 1 % (0-3) Basophils (%) (Auto) 1 % (0-3) 1 % (0-3) Neutrophils # (Auto) 3.5 x10^3/uL (1.8-7.7) 2.8 x10^3/uL (1.8-7.7) Lymphocytes # (Auto) 1.4 x10^3/uL (1.0-4.8) 1.6 x10^3/uL (1.0-4.8) Monocytes # (Auto) 0.6 x10^3/uL (0.0-1.1) 0.6 x10^3/uL (0.0-1.1) Eosinophils # (Auto) 0.1 x10^3/uL (0.0-0.7) 0.1 x10^3/uL (0.0-0.7) Basophils # (Auto) 0.0 x10^3/uL (0.0-0.2) 0.0 x10^3/uL (0.0-0.2) Sodium Level 141 mmol/L (136-145) 142 mmol/L (136-145) Potassium Level 4.2 mmol/L (3.5-5.1) 3.4 mmol/L (3.5-5.1) Chloride Level 104 mmol/L (98-107) 103 mmol/L (98-107) Carbon Dioxide Level 30 mmol/L (21-32) 30 mmol/L (21-32) Anion Gap 7 (6-14) 9 (6-14) Blood Urea Nitrogen 14 mg/dL (7-20) 12 mg/dL (7-20) Creatinine 0.8 mg/dL (0.6-1.0) 0.8 mg/dL (0.6-1.0) Estimated GFR (Cockcroft-Gault) 90.8 90.8 Glucose Level 139 mg/dL (70-99) 98 mg/dL (70-99) Calcium Level 8.6 mg/dL (8.5-10.1) 8.7 mg/dL (8.5-10.1) Troponin I High Sensitivity 6 ng/L (4-50) KA-Cvn-L-Type Natriuretic Peptide 23 pg/mL (0-124) Uric Acid 5.8 mg/dL (2.6-6.0) Phosphorus Level 4.5 mg/dL (2.6-4.7) Magnesium Level 2.1 mg/dL (1.8-2.4) Triglycerides Level 65 mg/dL (0-150) Cholesterol Level 186 mg/dL (0-200) LDL Cholesterol, Calculated 107 mg/dL (0-100) VLDL Cholesterol, Calculated 13 mg/dL (0-40) Non-HDL Cholesterol Calculated 120 mg/dL (0-129) HDL Cholesterol 66 mg/dL (40-60) Cholesterol/HDL Ratio 2.8 Thyroid Stimulating Hormone (TSH) 1.005 uIU/mL (0.358-3.74) Test 09/13/21 04:20 White Blood Count 6.1 x10^3/uL (4.0-11.0) Red Blood Count 4.05 x10^6/uL (3.50-5.40) Hemoglobin 11.1 g/dL (12.0-15.5) Hematocrit 33.9 % (36.0-47.0) Mean Corpuscular Volume 84 fL (79-100) Mean Corpuscular Hemoglobin 27 pg (25-35) Mean Corpuscular Hemoglobin Concent 33 g/dL (31-37) Red Cell Distribution Width 14.6 % (11.5-14.5) Platelet Count 280 x10^3/uL (140-400) Neutrophils (%) (Auto) 59 % (31-73) Lymphocytes (%) (Auto) 26 % (24-48) Monocytes (%) (Auto) 14 % (0-9) Eosinophils (%) (Auto) 1 % (0-3) Basophils (%) (Auto) 0 % (0-3) Neutrophils # (Auto) 3.6 x10^3/uL (1.8-7.7) Lymphocytes # (Auto) 1.6 x10^3/uL (1.0-4.8) Monocytes # (Auto) 0.8 x10^3/uL (0.0-1.1) Eosinophils # (Auto) 0.1 x10^3/uL (0.0-0.7) Basophils # (Auto) 0.0 x10^3/uL (0.0-0.2) Sodium Level 142 mmol/L (136-145) Potassium Level 3.4 mmol/L (3.5-5.1) Chloride Level 102 mmol/L (98-107) Carbon Dioxide Level 33 mmol/L (21-32) Anion Gap 7 (6-14) Blood Urea Nitrogen 14 mg/dL (7-20) Creatinine 1.0 mg/dL (0.6-1.0) Estimated GFR (Cockcroft-Gault) 70.2 Glucose Level 101 mg/dL (70-99) Calcium Level 8.8 mg/dL (8.5-10.1) Magnesium Level 2.0 mg/dL (1.8-2.4) Laboratory Tests Test 09/13/21 04:20 White Blood Count 6.1 x10^3/uL (4.0-11.0) Red Blood Count 4.05 x10^6/uL (3.50-5.40) Hemoglobin 11.1 g/dL (12.0-15.5) Hematocrit 33.9 % (36.0-47.0) Mean Corpuscular Volume 84 fL (79-100) Mean Corpuscular Hemoglobin 27 pg (25-35) Mean Corpuscular Hemoglobin Concent 33 g/dL (31-37) Red Cell Distribution Width 14.6 % (11.5-14.5) Platelet Count 280 x10^3/uL (140-400) Neutrophils (%) (Auto) 59 % (31-73) Lymphocytes (%) (Auto) 26 % (24-48) Monocytes (%) (Auto) 14 % (0-9) Eosinophils (%) (Auto) 1 % (0-3) Basophils (%) (Auto) 0 % (0-3) Neutrophils # (Auto) 3.6 x10^3/uL (1.8-7.7) Lymphocytes # (Auto) 1.6 x10^3/uL (1.0-4.8) Monocytes # (Auto) 0.8 x10^3/uL (0.0-1.1) Eosinophils # (Auto) 0.1 x10^3/uL (0.0-0.7) Basophils # (Auto) 0.0 x10^3/uL (0.0-0.2) Sodium Level 142 mmol/L (136-145) Potassium Level 3.4 mmol/L (3.5-5.1) Chloride Level 102 mmol/L (98-107) Carbon Dioxide Level 33 mmol/L (21-32) Anion Gap 7 (6-14) Blood Urea Nitrogen 14 mg/dL (7-20) Creatinine 1.0 mg/dL (0.6-1.0) Estimated GFR (Cockcroft-Gault) 70.2 Glucose Level 101 mg/dL (70-99) Calcium Level 8.8 mg/dL (8.5-10.1) Magnesium Level 2.0 mg/dL (1.8-2.4) Medications Active Scripts Medications Dose Route/Sig Max Daily Dose Days Date Category Dose Instructions Doxycycline Hyclate 100 Mg Capsule 1 Cap PO BID 5 03/14/21 Rx Innospire Go Nebulizer (Nebulizer) 1 Each Each Each MC 03/14/21 Rx Up to 6 times daily for budesonide and as needed duo nebs. Please dispense tubing and accessories Proair Hfa (Albuterol Sulfate) 8.5 Gm Hfa.aer.ad 2 Puff IH PRN Q4-6HRS PRN 21 03/14/21 Rx Prednisone 20 Mg Tablet 1 Tab PO DAILY 5 03/14/21 Rx Duoneb 0.5-3(2.5) Mg/3 Ml (Albuterol/Ipratropium) 3 Ml Ampul.neb 3 Ml NEB PRN Q4HRS PRN 30 03/14/21 Rx Budesonide 0.5 Mg/2 Ml Ampul.neb 0.5 Mg NEB RTBID 30 03/14/21 Rx Montelukast Sodium Tablet (Montelukast Sodium) 10 Mg Tablet 10 Mg PO QHS 30 03/14/21 Rx Spironolactone-Hctz 25-25 Tab (Spironolact/Hydrochlorothiazid) 1 Each Tablet 1 Each PO DAILY 03/08/21 Reported Robitussin Cough-Chest Dm Liq (Guaifenesin/Dextromethorphan) 237 Ml Liquid 10 Ml PO QID PRN 03/04/17 Rx Impression . 1. Acute hypoxic respiratory failure secondary to component of right heart failure. Clinically, less likely asthma exacerbation. No obvious CHF seen on the chest x-ray. ProBNP is normal. 2. Abnormal echo with mild pulmonary hypertension with an estimated pulmonary artery pressure of 30 to 35, likely from underlying sleep apnea and obesity/hypoventilation syndrome. 3. The patient with known history of sleep apnea and suspected obesity and hypoventilation syndrome. She does use a BIPAP/ Trilogy. She is not sure what she uses. The notices occasional gasping at nighttime. We may have to review the download data from her machine to make sure it is providing effective positive pressure at night. Patient has gained 30Lbs in past year. Plan . 1. Continue with present oxygen to keep saturation 92% and above. 2. Continue with diuretics. 3. Echo report reviewed. Mild pulmonary hypertension. Normal ejection fraction. 4. Continue prednisone with taper. 5. Continue bronchodilators including DuoNeb and budesonide. 6. We will review the download data from her home PAP machine and may recommend another titration to make sure that she is receiving effective pressure or adjust PAP settings based on download data. 7. Discussed with her and we will follow along with you. d/w MOSHE Martinez MD September 13, 2021 10:05
--- NOTE | 2021-09-13 10:21 | PDOC ---
[facility] PROGRESS NOTE Date of Service DOS: DATE: 09/13/21 TIME: 10:19 Chief Complaint Chief Complaint Dyspnea Fall at home Bilateral knee and ankle pain Pulmonary edema Lower extremity edema -very low NT proBNP difficulty use diagnostic tests in morbidly obese patient [Cutoff for super morbid obesity may be 20.4 in some studies (SAADIA PIÑA)] History of asthma History of bronchitis Morbid obesity - discussed weight loss surgery referral FEN - Regular diet PPX - lovenox FULL CODE Dispo - inpatient History of Present Illness History of Present Illness Ms Billingsley is a 51-year-old female with PMHx asthma, morbid obesity came to the ED after a fall onto her backside at home and inability to stand. For the past 2 to 3 weeks she has had worsening swelling in her legs and feet. She states that she normally takes spironolactone and hydrochlorothiazide but this has not helped with her swelling. She also endorses some shortness of breath. She endorses both PND and orthopnea. She denies having any chest pain. She denies any history of heart failure. She states she has seen her PCP who has adjusted her diuretics but she continues to have some swelling. 09/12: She notes after IV Lasix she had some improvement but swelling came right back. Has significant pain to palpation of her left foot. Able to bear weight but intermittently has pain in bilateral knees cannot stand for more than 10 seconds unaided. She has been using a Rollator walker at home. After Lasix pain is down to 3.0. She still has dyspnea on exertion and orthopnea. NT proBNP was only 23. We will trial aggressive IV Lasix consult cardiology and pulmonology. Check uric acid venous Dopplers of lower extremities 09/13: Negative for DVT, uric acid 5.9. Pain and swelling improved. Seen by pulmonology in consultation concern for pulmonary hypertension. She overall feels her breathing is improving. Vitals/I&O Vitals/I&O: Vital Signs Date Time Temp Pulse Resp B/P (MAP) Pulse Ox O2 Delivery O2 Flow Rate FiO2 09/13/21 08:00 Nasal Cannula 2.0 09/13/21 07:25 98 09/13/21 07:00 97.6 81 17 135/58 (83) 97.6 I & O 09/12/21 09/12/21 09/13/21 15:00 23:00 07:00 Intake Total 1160 ml 200 ml Output Total 2400 ml 300 ml Balance 1160 ml -2400 ml -100 ml Physical Exam General: Alert, Oriented X3, Cooperative, No acute distress Heart: Regular rate (SR), Other (distant heart sounds due to body habitus but no murmur) Lungs: Clear Abdomen: Soft, No tenderness Extremities: No cyanosis, Other (2-3+ bilateral LE pitting edema) Skin: No breakdown, No significant lesion Labs Labs: Laboratory Tests Test 09/13/21 04:20 White Blood Count 6.1 x10^3/uL (4.0-11.0) Red Blood Count 4.05 x10^6/uL (3.50-5.40) Hemoglobin 11.1 g/dL (12.0-15.5) Hematocrit 33.9 % (36.0-47.0) Mean Corpuscular Volume 84 fL (79-100) Mean Corpuscular Hemoglobin 27 pg (25-35) Mean Corpuscular Hemoglobin Concent 33 g/dL (31-37) Red Cell Distribution Width 14.6 % (11.5-14.5) Platelet Count 280 x10^3/uL (140-400) Neutrophils (%) (Auto) 59 % (31-73) Lymphocytes (%) (Auto) 26 % (24-48) Monocytes (%) (Auto) 14 % (0-9) Eosinophils (%) (Auto) 1 % (0-3) Basophils (%) (Auto) 0 % (0-3) Neutrophils # (Auto) 3.6 x10^3/uL (1.8-7.7) Lymphocytes # (Auto) 1.6 x10^3/uL (1.0-4.8) Monocytes # (Auto) 0.8 x10^3/uL (0.0-1.1) Eosinophils # (Auto) 0.1 x10^3/uL (0.0-0.7) Basophils # (Auto) 0.0 x10^3/uL (0.0-0.2) Sodium Level 142 mmol/L (136-145) Potassium Level 3.4 mmol/L (3.5-5.1) Chloride Level 102 mmol/L (98-107) Carbon Dioxide Level 33 mmol/L (21-32) Anion Gap 7 (6-14) Blood Urea Nitrogen 14 mg/dL (7-20) Creatinine 1.0 mg/dL (0.6-1.0) Estimated GFR (Cockcroft-Gault) 70.2 Glucose Level 101 mg/dL (70-99) Calcium Level 8.8 mg/dL (8.5-10.1) Magnesium Level 2.0 mg/dL (1.8-2.4) Assessment and Plan Assessmemt and Plan Problems Medical Problems: (1) Bilateral lower extremity edema Status: Acute (2) New onset of congestive heart failure Status: Acute Comment Review of Relevant I have reviewed the following items mehdi (where applicable) has been applied. Medications: Current Medications Medications (Trade) Dose Ordered Sig/Darling Route PRN Reason Start Time Stop Time Status Last Admin Dose Admin Potassium Chloride (Klor-Con) 40 meq 1X ONCE PO 09/13/21 08:00 09/13/21 08:01 DC 09/13/21 08:08 Justifications for Admission Other Justification Concern for CHF exacerbation NNEKA RANDOLPH MD September 13, 2021 10:21
--- NOTE | 2021-09-13 10:52 | PDOC ---
LORRAINE GUSTAFSON [employer] 09/13/21 1052: CARDIO Progress Notes Date and Time Date of Service 09/13/2021 Time of Evaluation 1030 Subjective Subjective: No Chest Pain, No shortness of breath, No Palpitations Vitals Vitals Vital Signs Date Time Temp Pulse Resp B/P (MAP) Pulse Ox O2 Delivery O2 Flow Rate FiO2 09/13/21 08:00 Nasal Cannula 2.0 09/13/21 07:25 98 09/13/21 07:00 97.6 81 17 135/58 (83) 97.6 Weight Weight [ ] Input and Output Intake and Output Intake and Output 09/13/21 07:00 Intake Total 1360 ml Output Total 2700 ml Balance -1340 ml Intake Oral 1360 ml Output Urine Total 2700 ml Laboratory Labs Laboratory Tests Test 09/13/21 04:20 White Blood Count 6.1 x10^3/uL (4.0-11.0) Red Blood Count 4.05 x10^6/uL (3.50-5.40) Hemoglobin 11.1 g/dL (12.0-15.5) Hematocrit 33.9 % (36.0-47.0) Mean Corpuscular Volume 84 fL (79-100) Mean Corpuscular Hemoglobin 27 pg (25-35) Mean Corpuscular Hemoglobin Concent 33 g/dL (31-37) Red Cell Distribution Width 14.6 % (11.5-14.5) Platelet Count 280 x10^3/uL (140-400) Neutrophils (%) (Auto) 59 % (31-73) Lymphocytes (%) (Auto) 26 % (24-48) Monocytes (%) (Auto) 14 % (0-9) Eosinophils (%) (Auto) 1 % (0-3) Basophils (%) (Auto) 0 % (0-3) Neutrophils # (Auto) 3.6 x10^3/uL (1.8-7.7) Lymphocytes # (Auto) 1.6 x10^3/uL (1.0-4.8) Monocytes # (Auto) 0.8 x10^3/uL (0.0-1.1) Eosinophils # (Auto) 0.1 x10^3/uL (0.0-0.7) Basophils # (Auto) 0.0 x10^3/uL (0.0-0.2) Sodium Level 142 mmol/L (136-145) Potassium Level 3.4 mmol/L (3.5-5.1) Chloride Level 102 mmol/L (98-107) Carbon Dioxide Level 33 mmol/L (21-32) Anion Gap 7 (6-14) Blood Urea Nitrogen 14 mg/dL (7-20) Creatinine 1.0 mg/dL (0.6-1.0) Estimated GFR (Cockcroft-Gault) 70.2 Glucose Level 101 mg/dL (70-99) Calcium Level 8.8 mg/dL (8.5-10.1) Magnesium Level 2.0 mg/dL (1.8-2.4) Physical Exam HEENT: Neck Supple W Full Motion Chest: Symmetric LUNGS: Clear to Auscultation Heart: S1S2, RRR (SR) Abdomen: Soft N/T Extremities: No Calf Tenderness, Other (2+ bilateral LE pitting edema) Neurology: alert, oriented, follow commands Assessment Assessment 1. Leg edema: more from being morbidly obese with secondary venous insufficiency Pro NT BNP is 23. 2. Chronic respiratory failure with asthma/COPD: no acute CHF. chronic O2 since 02/2021 3. Morbid obesity 4. Debility/deconditioning 5. Suspecting ANAHI/OHS Recommendations 1. Her VILLA is no different from her baseline, her functional capacity is limited due her size and chronic respiratory issue. She will benefit from outpt ischemic workup for further risk stratification 2. Follow up in office in 4-5 weeks 3. Lasix PRN 4. Will need bariatric referral and outpt ANAHI workup Justicifation of Admission Dx: Justifications for Admission: Justification of Admission Dx: Yes JACOB GILL MD 09/13/21 1848: CARDIO Progress Notes Assessment Assessment Patient seen and examined. Agree with STRIPPER COLOR's assessment and plan. Edema prob due to venous insufficiency - doubt CHF 2D echo showed normal LV systolic function with PAP 30 mmHg Plan ischemic evaluation as outpatient LORRAINE GUSTAFSON APRN September 13, 2021 10:52 JACOB GILL MD September 13, 2021 18:48
[2021-09-13 11:00] VITALS: BP 122/63
[2021-09-13] MEDS ORDERED: FURO20TA3 PO (13:04)
--- NOTE | 2021-09-13 13:10 | PDOC3 ---
Discharge Summary Visit Information Date of Admission: September 11, 2021 Date of Discharge: September 13, 2021 Admitting Diagnosis: Lower extremity edema Final Diagnosis Problems Medical Problems: (1) Bilateral lower extremity edema Status: Acute (2) New onset of congestive heart failure Status: Acute Brief Hospital Course Allergies Allergies Coded Allergies Type Severity Reaction Last Updated Verified No Known Drug Allergies 03/04/17 No Vital Signs Vital Signs Date Time Temp Pulse Resp B/P (MAP) Pulse Ox O2 Delivery O2 Flow Rate FiO2 09/13/21 11:24 98 Nasal Cannula 2.0 09/13/21 11:00 97.7 78 17 122/63 (82) 97.7 Lab Results Laboratory Tests Test 09/12/21 05:00 09/12/21 05:20 09/12/21 05:25 09/13/21 04:20 Sodium Level 142 mmol/L (136-145) 142 mmol/L (136-145) Potassium Level 3.4 mmol/L (3.5-5.1) 3.4 mmol/L (3.5-5.1) Chloride Level 103 mmol/L (98-107) 102 mmol/L (98-107) Carbon Dioxide Level 30 mmol/L (21-32) 33 mmol/L (21-32) Anion Gap 9 (6-14) 7 (6-14) Blood Urea Nitrogen 12 mg/dL (7-20) 14 mg/dL (7-20) Creatinine 0.8 mg/dL (0.6-1.0) 1.0 mg/dL (0.6-1.0) Estimated GFR (Cockcroft-Gault) 90.8 70.2 Glucose Level 98 mg/dL (70-99) 101 mg/dL (70-99) Uric Acid 5.8 mg/dL (2.6-6.0) Calcium Level 8.7 mg/dL (8.5-10.1) 8.8 mg/dL (8.5-10.1) Phosphorus Level 4.5 mg/dL (2.6-4.7) Magnesium Level 2.1 mg/dL (1.8-2.4) 2.0 mg/dL (1.8-2.4) White Blood Count 5.2 x10^3/uL (4.0-11.0) 6.1 x10^3/uL (4.0-11.0) Red Blood Count 3.87 x10^6/uL (3.50-5.40) 4.05 x10^6/uL (3.50-5.40) Hemoglobin 10.6 g/dL (12.0-15.5) 11.1 g/dL (12.0-15.5) Hematocrit 32.8 % (36.0-47.0) 33.9 % (36.0-47.0) Mean Corpuscular Volume 85 fL (79-100) 84 fL (79-100) Mean Corpuscular Hemoglobin 27 pg (25-35) 27 pg (25-35) Mean Corpuscular Hemoglobin Concent 32 g/dL (31-37) 33 g/dL (31-37) Red Cell Distribution Width 15.2 % (11.5-14.5) 14.6 % (11.5-14.5) Platelet Count 258 x10^3/uL (140-400) 280 x10^3/uL (140-400) Neutrophils (%) (Auto) 55 % (31-73) 59 % (31-73) Lymphocytes (%) (Auto) 31 % (24-48) 26 % (24-48) Monocytes (%) (Auto) 13 % (0-9) 14 % (0-9) Eosinophils (%) (Auto) 1 % (0-3) 1 % (0-3) Basophils (%) (Auto) 1 % (0-3) 0 % (0-3) Neutrophils # (Auto) 2.8 x10^3/uL (1.8-7.7) 3.6 x10^3/uL (1.8-7.7) Lymphocytes # (Auto) 1.6 x10^3/uL (1.0-4.8) 1.6 x10^3/uL (1.0-4.8) Monocytes # (Auto) 0.6 x10^3/uL (0.0-1.1) 0.8 x10^3/uL (0.0-1.1) Eosinophils # (Auto) 0.1 x10^3/uL (0.0-0.7) 0.1 x10^3/uL (0.0-0.7) Basophils # (Auto) 0.0 x10^3/uL (0.0-0.2) 0.0 x10^3/uL (0.0-0.2) Triglycerides Level 65 mg/dL (0-150) Cholesterol Level 186 mg/dL (0-200) LDL Cholesterol, Calculated 107 mg/dL (0-100) VLDL Cholesterol, Calculated 13 mg/dL (0-40) Non-HDL Cholesterol Calculated 120 mg/dL (0-129) HDL Cholesterol 66 mg/dL (40-60) Cholesterol/HDL Ratio 2.8 Thyroid Stimulating Hormone (TSH) 1.005 uIU/mL (0.358-3.74) Laboratory Tests Test 09/13/21 04:20 White Blood Count 6.1 x10^3/uL (4.0-11.0) Red Blood Count 4.05 x10^6/uL (3.50-5.40) Hemoglobin 11.1 g/dL (12.0-15.5) Hematocrit 33.9 % (36.0-47.0) Mean Corpuscular Volume 84 fL (79-100) Mean Corpuscular Hemoglobin 27 pg (25-35) Mean Corpuscular Hemoglobin Concent 33 g/dL (31-37) Red Cell Distribution Width 14.6 % (11.5-14.5) Platelet Count 280 x10^3/uL (140-400) Neutrophils (%) (Auto) 59 % (31-73) Lymphocytes (%) (Auto) 26 % (24-48) Monocytes (%) (Auto) 14 % (0-9) Eosinophils (%) (Auto) 1 % (0-3) Basophils (%) (Auto) 0 % (0-3) Neutrophils # (Auto) 3.6 x10^3/uL (1.8-7.7) Lymphocytes # (Auto) 1.6 x10^3/uL (1.0-4.8) Monocytes # (Auto) 0.8 x10^3/uL (0.0-1.1) Eosinophils # (Auto) 0.1 x10^3/uL (0.0-0.7) Basophils # (Auto) 0.0 x10^3/uL (0.0-0.2) Sodium Level 142 mmol/L (136-145) Potassium Level 3.4 mmol/L (3.5-5.1) Chloride Level 102 mmol/L (98-107) Carbon Dioxide Level 33 mmol/L (21-32) Anion Gap 7 (6-14) Blood Urea Nitrogen 14 mg/dL (7-20) Creatinine 1.0 mg/dL (0.6-1.0) Estimated GFR (Cockcroft-Gault) 70.2 Glucose Level 101 mg/dL (70-99) Calcium Level 8.8 mg/dL (8.5-10.1) Magnesium Level 2.0 mg/dL (1.8-2.4) Brief Hospital Course Ms Billingsley is a 51-year-old female with PMHx asthma, morbid obesity came to the ED after a fall onto her backside at home and inability to stand. For the past 2 to 3 weeks she has had worsening swelling in her legs and feet. She states that she normally takes spironolactone and hydrochlorothiazide but this has not helped with her swelling. She also endorses some shortness of breath. She e ndorses both PND and orthopnea. She denies having any chest pain. She denies any history of heart failure. She states she has seen her PCP who has adjusted her diuretics but she continues to have some swelling. 09/12: She notes after IV Lasix she had some improvement but swelling came right back. Has significant pain to palpation of her left foot. Able to bear weight but intermittently has pain in bilateral knees cannot stand for more than 10 seconds unaided. She has been using a Rollator walker at home. After Lasix pain is down to 3.0. She still has dyspnea on exertion and orthopnea. NT proBNP was only 23. We will trial aggressive IV Lasix consult cardiology and pulmonology. Check uric acid venous Dopplers of lower extremities 09/13: Negative for DVT, uric acid 5.9. Pain and swelling improved. Seen by pulmonology in consultation concern for pulmonary hypertension. She overall feels her breathing is improving. Currently given referral for bariatric assessment given her large weight gain and CHF least likely as the etiology. Consults; Pulmonology, Cardiology Echocardiogram: The left ventricle is normal size. The left ventricular systolic function is normal. LV ejection fraction of 50 to 55% There is normal left ventricular wall thickness. Doppler and Color Flow revealed no significant aortic regurgitation. There is no significant aortic valvular stenosis. Doppler and Color Flow revealed no mitral valve regurgitation noted. Doppler and Color Flow revealed mild tricuspid regurgitation. Estimated PAP 30 mmHg. Problem list: Dyspnea Fall at home Bilateral knee and ankle pain Lower extremity edema -very low NT proBNP difficulty use diagnostic tests in morbidly obese patient [Cutoff for super morbid obesity may be 20.4 in some studies (SAADIA PIÑA)] History of asthma History of bronchitis Morbid obesity - discussed weight loss surgery referral Chronic respiratory failure with asthma/COPD: no acute CHF. chronic O2 since 02/2021 Debility/deconditioning Suspecting ANAHI/OHS Greater than 30 minutes spent on d/c home Discharge Information Condition at Discharge: Improved Follow Up: Weeks (1) Disposition/Orders: D/C to Home Scheduled Budesonide (Budesonide) 0.5 Mg/2 Ml Ampul.neb, 0.5 MG NEB RTBID for Chronic bronchitis for 30 Days, #60 Ref 5 Prescribed by: NNEKA RANDOLPH MD on 03/14/211443 Last Action: Continued on 09/11/211739 by NORBERTO MCLAIN MD Furosemide (Furosemide) 20 Mg Tablet, 1 TAB PO DAILY for Prn weight gain 2# for 30 Days, #30 Ref 1 Prescribed by: NNEKA RANDOLPH MD on 09/13/21 1304 Montelukast Sodium (Montelukast Sodium Tablet ) 10 Mg Tablet, 10 MG PO QHS for Asthma for 30 Days, #30 Ref 11 Prescribed by: NNEKA RANDOLPH MD on 03/14/21 1444 Last Action: Continued on 09/11/211739 by NORBERTO MCLAIN MD Scheduled PRN Albuterol Sulfate (Proair Hfa) 8.5 Gm Hfa.aer.ad, 2 PUFF IH PRN Q4-6HRS PRN for wheezing for 21 Days, #1 Ref 5 Prescribed by: NNEKA RANDOLPH MD on 03/14/21 1444 Guaifenesin/Dextromethorphan (Robitussin Cough-Chest Dm Liq) 237 Ml Liquid, 10 ML PO QID PRN for COUGH, #120 Prescribed by: CARLO LUNA on 03/04/17 1457 Ipratropium/Albuterol Sulfate (Duoneb 0.5-3(2.5) Mg/3 Ml) 3 Ml Ampul.neb, 3 ML NEB PRN Q4HRS PRN for sob for 30 Days, #120 Ref 5 Prescribed by: NNEKA RANDOLPH MD on 03/14/211443 Last Action: Continued on 09/11/211739 by NORBERTO MCLAIN MD Discontinued Medications Doxycycline Hyclate (Doxycycline Hyclate) 100 Mg Capsule, 1 CAP PO BID for Bronchitis for 5 Days, #10 Prescribed by: NNEKA RANDOLPH MD on 03/14/211443 Prednisone (Prednisone) 20 Mg Tablet, 1 TAB PO DAILY for Bronchitis for 5 Days, #5 Prescribed by: NNEKA RANDOLPH MD on 03/14/211443 Last Action: Continued on 09/11/211739 by NORBERTO MCLAIN MD Spironolact/Hydrochlorothiazid (Spironolactone-Hctz 25-25 Tab) 1 Each Tablet, 1 EACH PO DAILY for HTN, (Reported) Entered as Reported by: CIRO MOYER on 03/08/21 0148 Durable Medical Equipment Nebulizer (Innospire Go Nebulizer) 1 Each Each, EACH MC for Chronic bronchitis, persistent, #1, (DME) Up to 6 times daily for budesonide and as needed duo nebs. Please dispense tubing and accessories Prescribed by: NNEKA RANDOLPH MD on 03/14/211443 Justicifation of Admission Dx: Justifications for Admission: Justification of Admission Dx: Yes NNEKA RANDOLPH MD September 13, 2021 13:10
--- NOTE | 2021-09-13 14:02 | NUR ---
Discharge Note: [facility] Discharge instructions and discharge home medications reviewed with Patient and a copy given. All questions have been answered and understanding verbalized. The following instructions and handouts were given: Follow up and new medications Discontinued lines and drains: IV and campus monitor removed Patient discharged to home
== END 2021-09-13 14:06 | disposition home or self-care (01) | DRG 189 ==
LOC: ER 12:26 → 6 SOUTH 15:15
PROVIDERS: ADMIT Internal Medicine; ATTEND Internal Medicine
DX: J96.21 Acute and chronic respiratory failure with hypoxia (principal); E66.2 Morbid (severe) obesity with alveolar hypoventilation; J98.11 Atelectasis; Z68.43 Body mass index [BMI] 50.0-59.9, adult; I11.0 Hypertensive heart disease with heart failure; I27.29 Other secondary pulmonary hypertension; I50.82 Biventricular heart failure; I87.2 Venous insufficiency (chronic) (peripheral); J44.9 Chronic obstructive pulmonary disease, unspecified; K21.9 Gastro-esophageal reflux disease without esophagitis; M19.90 Unspecified osteoarthritis, unspecified site; W18.39XA Other fall on same level, initial encounter; Y93.89 Activity, other specified; Y92.89 Other specified places as the place of occurrence of the external cause; Y99.8 Other external cause status
CPT/HCPCS: 96374; 99285; C8929; 36415; 71046; 80048; 80061; 83735; 83880; 84100; 84443; 84484; 84550; 85025; 93005; 93970; 94640; 94760; J1650; J1940; J7512; Q9956; G0378; J7626; Q0163